=== PATIENT | male | born 1965 | race Two or more races ===

== ENCOUNTER 2016-07-31 13:13 | Outpatient (CLI) | payer OTHER | END 2016-07-31 13:14 | disposition home or self-care (01) | LOC: SC 13:13 | PROVIDERS: ATTEND Nurse Practitioner Family | DX: G47.33 Obstructive sleep apnea (adult) (pediatric) (principal) | CPT/HCPCS: 99212; 99214 ==

== ENCOUNTER 2019-02-06 07:00 | Outpatient (CLI) | payer OTHER ==
[2019-02-06 12:39] LABS: ALBUMIN 4.3 g/dL (3.2-5.5); ALBUMIN/GLOBULIN RATIO 1.3 (1.0-2.2); ALKALINE PHOSPHATASE 54 IU/L (42-121); ALT ALANINE AMINOTRANSFERASE 27 IU/L (10-60); AST ASPARTATE AMINOTRANSFERASE 24 IU/L (10-42); BILIRUBIN,TOTAL 1.7 mg/dL (0.2-1.0); BUN - BLOOD UREA NITROGEN 20 mg/dL (6-20); CALCIUM 9.5 mg/dL (8.5-10.3); CARBON DIOXIDE - CO2 26 mmol/L (21-32); CHLORIDE 105 mmol/L (101-111); CHOLESTEROL 208 mg/dL; GFR - MDRD 78 (>89); GLUCOSE 90 mg/dL (70-100); HDL CHOLESTEROL 42 mg/dL; LDL CHOLESTEROL,CALCULATED 143 mg/dL; LDL/HDL RATIO 3.4 (<3.6); SODIUM 138 mmol/L (135-145); TOTAL PROTEIN 7.5 g/dL (6.7-8.2); VLDL CHOLESTEROL 23 mg/dL
[2019-02-06 13:46] LABS: HB2 TOTAL 14.6 g/dL; HEMOGLOBIN A1C 0.53 g/dL; HEMOGLOBIN A1C % 5.5 % (4.6-6.2)
== END 2019-02-06 23:59 | disposition home or self-care (01) ==
LOC: LAB.WCP 07:00
PROVIDERS: ATTEND Family Medicine
DX: Z00.00 Encounter for general adult medical examination without abnormal findings (principal); Z12.5 Encounter for screening for malignant neoplasm of prostate; E78.5 Hyperlipidemia, unspecified; E74.39 Other disorders of intestinal carbohydrate absorption
CPT/HCPCS: 36415; 80053; 80061; 83036; 83721; 84153

== ENCOUNTER 2022-01-03 11:06 | Outpatient (CLI) | payer OTHER ==
--- NOTE | 2022-01-03 11:56 | SLEEP CARE CONSULTATION ---
Information from patient questionnaire entered by Allison Puri. I have reviewed and concur with the information entered by Allison Puri. This document represents the service I personally performed and the decisions made by me, Loly Martinez ARNP. History of Present Illness Service Date and Time: 01/03/2022 1106 Reason for Visit: New patient, sleep apnea on CPAP therapy, Re-establish care Accompanied by: Spouse Chief Complaint: reports: Other (UPDATE SUPPLIES USING A MACHINE THAT HAS BEEN RECALLED 8 YEARS OLD) Date of Onset: 1998 Usual bedtime: 11PM Time it takes to fall asleep: 10MIN Snores at night: Yes Observed to quit breathing while asleep: Yes Sleeps alone due to snoring: No Number of times waking at night: 2-3 Reasons for waking at night: reports: Gasping for air, Bathroom Toss, Turn, or Twitch while sleeping: No Recalls having dreams: Yes Usually gets out of bed at: 6AM Feels refreshed in the morning: Yes Morning headache: No Sleepy or fatigued during the day: Yes Ever fallen asleep while driving: No Takes day naps: Yes Dreams during day naps: No Prior sleep studies: Yes ([facility] [place]) Additional HPI information: TOMMIE PA was previously diagnosed to have moderate, AHI 26.9, obstructive sleep apnea-hypopnea syndrome and comes in today to re-establish care for CPAP therapy. - Parasomnia Symptoms Ever been unable to move upon waking from sleep: Yes Walks in sleep: No Talks in sleep: No Ever acted out dreams in sleep: No Ever felt weak in the knees when startled or emotional: No Bothered by creepy, crawly, restless sensations in legs: No Problems with memory or concentration: No CPAP Compliance Data - Data Reviewed with Patient Average duration of nightly device use: 5 hours 6 minutes Compliance rate %: 73 (30/30 days used; 22/30 days >/= 4 hours) Current pressure setting (cmH2O): 7.0 Average residual AHI: 2.0 Average large leak: 0 Compliance data discussion: He has a RemStar Angela machine that is at least 8 years old. He is using a Angela nasal cushion Dreamwear mask. He has been buying his supplies online. We were able to get last 30 days of compliance off his device. He does not have a SD card in his machine. Subjective Missed days of use due to: reports: travel (used his 's machine when on vacation), other (work interrupts sleep) Patient concerns: denies: aerophagia, mask discomfort, air blowing in eyes, mask leak noise, condensation in mask/hose, nasal congestion, dry mouth, nose, throat, epistaxis Observed to snore while using device: No Current pressure setting perceived as: comfortable On therapy, patient: reports: sleeping better, awakening more refreshed, being more awake and alert during the day, more rested overall. denies: drowsiness while driving Initial Custer Sleepiness Scale score: 8 (12/20/2021) Past Medical History Past Medical History: reports: Arthritis Social History The patient's occupation is a [employer]. Patient is and lives in [place]. Have you smoked in the past 12 months: No Alcohol use: Yes Alcohol amount and frequency: 1-2 DRINKS ONECE OR TWICE A MONTH Caffeine use: Yes Caffeine amount and frequency: 2-3 DAILY Family History Family history of sleep disordered breathing: Yes Family Hx Sleep Apnea: Father: Sleep apnea - Treated, Sibling: Snoring, Sleep apnea - Treated, Grandparent: Snoring Allergies and Home Medications Known drug allergies: No Drug allergies reviewed: Yes (NKDA) Home medication list reviewed: Yes Allergy and home medication list: Medications: OTC Claritin as needed Review of Systems Review of systems same as previous: Yes (NONE) Physical Exam Vital signs obtained and entered by: ALLISON Hayes MA Blood Pressure: 128/76 (left arm) Cuff size: regular Heart Rate: 58 O2 Saturation: 96 Height: 5 ft 11 in Weight: 246 lb 9.6 oz Body Mass Index: 34.4 BMI Classification: Obese Impression and Plan 1. Obstructive Sleep Apnea-Hypopnea Syndrome, moderate, with good treatment compliance and good apnea control. On CPAP therapy, the patient has better sleep quality and is more rested overall. Patient is back to reestablish care and to update his CPAP device. He has been using an old REMstar by Angela that is about 8 years old and is also on the recall. Patient has not noted any debris in his machine. He has been buying his supplies online since the company in town no longer carry CPAP supplies. He would like to get a new supplier and a new CPAP. The patients CPAP is over 5 years old and of reasonable use. Thus, the CPAP will be updated. A DWO prescription will be made. Compliance guidelines for new device and follow up discussed. Patient's apnea severity and rationale for treatment to reduce apnea, improve sleep quality and reduce car diovascular and cerebrovascular events was reviewed. 2. Obesity, unspecified. Currently patients BMI is 34.4. Obesity increases the risk of apnea, CPAP pressure requirements and overall health risks especially cardiovascular and diabetes. Thus patient is advised to lose weight. * Continue CPAP pressure at 7.0 cmH2O * Transfer DME * Update machine * Update supplies * Notify me if snoring with mask or feeling that the pressure is too much or too little * Attempt to lose weight * Call this office if any problems using CPAP * Return for follow up one month after obtaining new device, or sooner if co ncerns arise Counseling Topics: Spare mask, Weight loss health impact Visit Type: In Office Time Spent with Patient (minutes): 32 Provider Statement: I spent 100% of the Face to Face Visit with the patient with greater than 50% spent counseling the patient and coordination of care.
[2022-01-03 11:57] VITALS: BP 128/76
== END 2022-01-03 11:07 | disposition home or self-care (01) ==
LOC: SC 11:06
PROVIDERS: ATTEND Nurse Practitioner Family
DX: G47.33 Obstructive sleep apnea (adult) (pediatric) (principal); E66.9 Obesity, unspecified; Z68.34 Body mass index [BMI] 34.0-34.9, adult
CPT/HCPCS: 99203; 99212

== ENCOUNTER 2022-06-07 07:30 | Outpatient (CLI) | payer OTHER ==
[2022-06-07 11:48] LABS: BASOPHILS # (AUTO) 0.1 10^3/uL (0.0-0.1); EOSINOPHILS # (AUTO) 0.4 10^3/uL (0.0-0.7); EOSINOPHILS % (AUTO) 6.2 %; HCT - HEMATOCRIT 40.8 % (42.0-52.0); HGB - HEMOGLOBIN 14.1 g/dL (14.0-18.0); LYMPHOCYTES # (AUTO) 1.5 10^3/uL (1.5-3.5); LYMPHOCYTES % (AUTO) 25.6 %; MEAN CORPUSCULAR HEMOGLOBIN 31.5 pg (27.0-31.0); MEAN CORPUSCULAR HGB CONC 34.6 g/dL (32.0-36.0); MEAN CORPUSCULAR VOLUME 91.1 fL (80.0-94.0); MEAN PLATELET VOLUME 9.3 fL (7.4-11.4); MONOCYTES # (AUTO) 0.8 10^3/uL (0.0-1.0); MONOCYTES % (AUTO) 13.1 %; NEUTROPHILS # (AUTO) 3.2 10^3/uL (1.5-6.6); NEUTROPHILS % (AUTO) 53.8 %; PLT - PLATELET COUNT 292 10^3/uL (130-450); RED BLOOD COUNT 4.48 10^6/uL (4.70-6.10); RED CELL DISTRIBUTION WIDTH 12.8 % (12.0-15.0)
[2022-06-07 12:05] LABS: ALBUMIN 3.8 g/dL (3.2-5.5); ALBUMIN/GLOBULIN RATIO 1.2 (1.0-2.2); ALKALINE PHOSPHATASE 52 IU/L (42-121); ALT ALANINE AMINOTRANSFERASE 40 IU/L (10-60); AST ASPARTATE AMINOTRANSFERASE 26 IU/L (10-42); BILIRUBIN,TOTAL 1.3 mg/dL (0.2-1.0); BUN - BLOOD UREA NITROGEN 26 mg/dL (6-20); CALCIUM 8.9 mg/dL (8.5-10.3); CARBON DIOXIDE - CO2 25 mmol/L (21-32); CHLORIDE 108 mmol/L (101-111); CHOL/HDL RATIO 4.4 (<5.0); CHOLESTEROL 209 mg/dL; CREATININE 0.8 mg/dL (0.6-1.2); GFR - MDRD 100 (>89); GLUCOSE 111 mg/dL (70-100); HDL CHOLESTEROL 47 mg/dL; LDL CHOLESTEROL,CALCULATED 147 mg/dL; LDL/HDL RATIO 3.1 (<3.6); POTASSIUM 3.9 mmol/L (3.5-5.0); SODIUM 140 mmol/L (135-145); TOTAL PROTEIN 7.1 g/dL (6.7-8.2); TRIGLYCERIDES 76 mg/dL; VLDL CHOLESTEROL 15 mg/dL
[2022-06-07 12:06] LABS: CRP - C-REACTIVE PROTEIN < 1.0 mg/dL (0-1.0)
[2022-06-07 12:12] LABS: THYROID STIMULATING HORMONE 1.14 uIU/mL (0.34-5.60)
[2022-06-07 12:21] LABS: ESTIMATED AVERAGE GLUCOSE 105 mg/dL (70-100); HEMOGLOBIN A1c% 5.3 % (4.27-6.07)
== END 2022-06-07 07:45 | disposition home or self-care (01) ==
LOC: LAB.N 07:30
PROVIDERS: ATTEND Registered Nurse
DX: M25.50 Pain in unspecified joint (principal); R05.1 Acute cough
CPT/HCPCS: 36415; 80053; 80061; 83036; 83721; 84443; 85025; 85651; 86140

== ENCOUNTER 2022-06-07 08:30 | Outpatient (CLI) | payer OTHER ==
--- NOTE | 2022-06-07 09:02 | XRAY Report ---
PROCEDURE: Chest 2 View X-Ray INDICATIONS: ACUTE COUGH TECHNIQUE: 2 views of the chest were acquired. COMPARISON: None. FINDINGS: Surgical changes and devices: None. Lungs and pleura: No pleural effusions or pneumothorax. Lungs are clear. Mediastinum: Mediastinal contours are normal. Heart size is normal. Bones and chest wall: No suspicious bony abnormalities. Soft tissues appear unremarkable. IMPRESSION: Chest without acute cardiopulmonary abnormalities or focal airspace disease. Reviewed by: Narendra Russell MD on 06/07/2022 9:01 AM PDT Approved by: Narendra Russell MD on 06/07/2022 9:01 AM PDT Station ID: [id number]
== END 2022-06-07 08:31 | disposition home or self-care (01) ==
LOC: DI 08:30
PROVIDERS: ATTEND Registered Nurse
DX: M25.50 Pain in unspecified joint (principal); R05.1 Acute cough
CPT/HCPCS: 36415; 80053; 80061; 83036; 83721; 84443; 85025; 85651; 86140

== ENCOUNTER 2022-06-29 18:53 | Outpatient (CLI) | payer OTHER | END 2022-06-29 23:59 | disposition EMS.NT | LOC: EMS 18:53 | DX: Z04.1 Encounter for examination and observation following transport accident (principal) ==

== ENCOUNTER 2022-11-01 08:42 | Outpatient (CLI) | payer OTHER ==
--- NOTE | 2022-11-01 09:16 | Sleep Patient Instructions ---
Sleep Center Visit Summary - Patient Visit Information Reason for Visit: 10 month followup for PAP therapy - Patient Instructions Additional Instructions: You were here for follow up of CPAP therapy. You will be continued on CPAP therapy with pressure at 7 cmH2O. Your information will be transferred to new CPAP supplier for your supply concerns. They should be calling you to set you up with supplies. You should follow up with sleep care in 12 months. You may contact us sooner for any questions or concerns. - Clinic Information Contact: [facility] [address] [place] [address] [email or web address] T: [phone]
--- NOTE | 2022-11-01 09:20 | SLEEP CARE CONSULTATION ---
Information from patient questionnaire entered by Allison Puri. I have reviewed and concur with the information entered by Allison Puri. This document represents the service I personally performed and the decisions made by , Loly Martinez ARNP. History of Present Illness Service Date and Time: 11/01/2022 0842 Previous diagnosis: Moderate, Obstructive Sleep Apnea-Hypopnea Syndrome AHI: 26.9 (in 06/2007) Reason for follow up: other (10 MONTH F/U) Equipment type: CPAP (RESMED Airsense 10, s/u 01/2022; SD CARD NEEDED) Equipment obtained from: Other ([facility]--needs to change to new DME due to ins change) Mask style: Nasal Mask brand: Respironics (Dreamwear) Backup mask available: Yes (old mask) Last cushion change: 2.5 weeks Prior sleep studies: Yes ([facility] [place]) HPI additional information: TOMMIE PA was diagnosed to have moderate, AHI 26.9, obstructive sleep apnea- hypopnea syndrome and returned today for CPAP therapy ten month follow-up. Sleep Study - Results Prior sleep studies: Yes ([facility] [place]) CPAP Compliance Data - Data Reviewed with Patient Average duration of nightly device use: 5 hours 54 minutes Compliance rate %: 86 (168/180 days used) Current pressure setting (cmH2O): 7 Average residual AHI: 0.8 Central apnea: 0.1 Obstructive apnea: 0.3 Average large leak: 0 L/min Subjective Missed days of use due to: reports: travel (fall asleep without it) Patient concerns: denies: aerophagia, mask discomfort, air blowing in eyes, mask leak noise, condensation in mask/hose, nasal congestion, dry mouth, nose, throat, epistaxis Observed to snore while using device: No Current pressure setting perceived as: comfortable On therapy, patient: reports: sleeping better, awakening more refreshed, being more awake and alert during the day, more rested overall. denies: drowsiness while driving Initial Finger Sleepiness Scale score: 8 (12/20/2021) Current Finger Sleepiness Scale score: 10 (11/01/22) Allergies and Home Medications Known drug allergies: No Drug allergies reviewed: Yes Home medication list reviewed: Yes (no changes) Allergy and home medication list: Allergies No Known Drug Allergies Allergy Review of Systems Review of systems same as previous: Yes (no changes) Physical Exam Vital signs obtained and entered by: ALLISON Hayes MA Blood Pressure: 118/78 (LEFT ARM) Cuff size: regular Heart Rate: 68 O2 Saturation: 95 Height: 5 ft 11 in Weight: 254 lb 3.2 oz Weight change since last visit: 8 lbs gain Body Mass Index: 35.4 BMI Classification: Obese Impression and Plan 1. Obstructive Sleep Apnea-Hypopnea Syndrome, moderate, with good treatment compliance and good apnea control. On CPAP therapy, the patient has better sleep quality and is more rested overall. He has changed insurance and his current DME does not accept the new insurance. He was informed that another DME can be used. I will have my mental health coordinator inform of DME options. A DWO prescription will then be made. Patient advised to contact this office if further supply problems. Patient's apnea severity and rationale for treatment to reduce apnea, improve sleep quality and reduce cardiovascular and cerebrovascular events was reviewed. 2. Obesity, unspecified. Currently patients BMI is 35.4. He has gained weight. Obesity increases the risk of apnea, CPAP pressure requirements and overall health risks especially cardiovascular and diabetes. Thus patient is advised to lose weight. * Continue CPAP pressure at 7 cmH2O * Transfer DME * Update supplies * Notify me if snoring with mask or feeling that the pressure is too much or too little * Attempt to lose weight * Call this office if any problems using CPAP * Return for follow up in 1 year, or sooner if concerns arise Counseling Topics: Spare mask, Weight loss health impact Visit Type: In Office Time Spent with Patient (minutes): 21 Provider Statement: I spent 100% of the Face to Face Visit with the patient with greater than 50% spent counseling the patient and coordination of care.
[2022-11-01 09:26] VITALS: BP 118/78; O2SAT 95
== END 2022-11-01 08:43 | disposition home or self-care (01) ==
LOC: SC 08:42
PROVIDERS: ATTEND Nurse Practitioner Family
DX: G47.33 Obstructive sleep apnea (adult) (pediatric) (principal); E66.9 Obesity, unspecified; Z68.35 Body mass index [BMI] 35.0-35.9, adult
CPT/HCPCS: 99212; 99213